=== PATIENT | female | born 1975 | race African-American/Black ===

== ENCOUNTER 2016-04-27 08:14 | Emergency (ER) | payer BC, MEDICAID ==
[~2016-04-27] VITALS: Ht 172.7 cm; Wt 100.0 kg
[~2016-04-27 08:14] MED LIST: AUGM875T PO; DIFL150T PO; FLUT1SPR9 EACH NARE
[2016-04-27 08:19] VITALS: BP 137/96; PULSE 78; RESP 16; TEMP 97.8; O2SAT 98
--- NOTE | 2016-04-27 08:38 | PD ---
HPI Chief Complaint: Injury Time Seen by Provider: 08:35 Travel History International Travel<30 days: No Contact w/Intl Traveler<30days: No Traveled to known affect area: No History of Present Illness HPI Patient comes in for evaluation puncture wound plantar surface of her foot that occurred yesterday morning. Patient states she was at a detention where there are having the roof redone when she accidentally stepped on a nail that went through her shoe. Patient has been cleaning it and using antibiotic ointment. Patient is uncertain of her last tetanus shot. Patient complaining of mild irritation around the site of the puncture wound that is slightly irritated when she walks. Denies any radiation of the pain. Patient denies anything making it better. PFSH Past Medical History Asthma: Yes Diminished Hearing: No Migraines: Yes ?: Not Past Surgical History Section: Yes Gynecologic Surgery: Yes (C.SECTION X 3) Social History Alcohol Use: No Tobacco Use: No Substance Use: No Allergies-Medications (Allergen,Severity, Reaction): Coded Allergies: Levaquin (Verified Allergy, Severe, EDEMA, 04/27/16) Reported Meds & Prescriptions Reported Meds & Active Scripts Active Keflex (Cephalexin) 500 Mg Cap 500 Mg PO Q6H 5 Days Review of Systems Except as stated in HPI: all other systems reviewed are Neg Physical Exam Narrative GENERAL: Well-developed, overly nourished, in no acute distress, and non-ill appearing. SKIN: Warm and dry. Small (less than 0.5 cm) circular puncture wound noted is relatively superficial, without fluctuation, induration, crepitus, or drainage. It is afebrile and minimally tender to palpation. There is no obvious retained foreign body noted. HEAD: Atraumatic. Normocephalic. EYES: Pupils equal and round. EOMI. No scleral icterus. No injection or drainage. ENT: No nasal bleeding or discharge. Mucous membranes pink and moist. NECK: Trachea midline. Supple. No nuclear rigidity. RESPIRATORY: No accessory muscle use. No respiratory distress. MUSCULOSKELETAL: No obvious deformities. No clubbing. No cyanosis. No edema. Full range of motion. NEUROLOGICAL: Awake and alert. No obvious cranial nerve deficits. Motor grossly within normal limits. Normal speech. PSYCHIATRIC: Appropriate mood and affect; insight and judgment normal. Data Data Last Documented VS Vital Signs Date Time Temp Pulse Resp B/P Pulse Ox O2 Delivery O2 Flow Rate FiO2 04/27/16 08:19 97.8 78 16 137/96 98 Room Air Orders Tetanus/Diphtheria Tox Adult (Tetanus/Di (04/27/16 08:45) MDM Medical Decision Making Medical Screen Exam Complete: Yes Emergency Medical Condition: No Differential Diagnosis Puncture wound, wound infection, abscess, cellulitis, other Narrative Course Patient in no obvious distress upon re-evaluation. Patient was asked if they wanted to speak to my attending, which the patient did not wish to do at this time. Secondary to patient's Levaquin allergy Cipro and/or Levaquin could not be given prophylactically, therefore Keflex as prescribed instead following the guidelines noted on up-to-date. Any questions/concerns in reference to patient diagnosis/condition discussed and clarified prior to patient's discharge. Reinforced sheer importance of close follow up with patient's primary physician or primary care clinic. Instructed patient to return to ED immediately, if symptoms return/worsen. Pt showed understanding of above instructions. Further instructions and recommendations were detailed in discharge paperwork. Pt ambulated without difficulty out of ED at discharge. Diagnosis Primary Impression: Puncture wound Patient Instructions: General Instructions, Puncture Wound (ED) Additional Instructions: Follow-up with your primary care physician in 3-5 days for reevaluation. Take all medication as prescribed. Use [id number] Tylenol and/or ibuprofen as needed for pain. Follow instructions on the packaging. Return to the emergency department if symptoms get worse. Med/Other Pt SpecificInfo: Prescription(s) given Scripts Cephalexin (Keflex)500 Mg [id number] Mg PO Q6H 5 Days Ref 0 Prov:Florencio Garcia MD 04/27/16 Disposition: 01 DISCHARGE HOME Condition: Stable Pro Manuel Apr 27, 2016 08:38
[2016-04-27] MEDS ORDERED: CEPH-460 PO (08:39)
[2016-04-27] MEDS ORDERED: TETANUS/DIPHTHERIA TOXOID ADULT 0.5 ML VIAL IM ONE (08:45)
== END 2016-04-27 08:58 | disposition home or self-care (01) ==
LOC: NEPB 08:14
DX: S91.331A Puncture wound without foreign body, right foot, initial encounter (principal); Z23 Encounter for immunization; W45.0XXA Nail entering through skin, initial encounter; Y92.129 Unspecified place in nursing home as the place of occurrence of the external cause
CPT/HCPCS: 90471; 90714

== ENCOUNTER 2016-06-19 15:23 | Emergency (ER) | payer BC ==
[~2016-06-19] VITALS: Ht 172.7 cm; Wt 90.5 kg
[~2016-06-19 15:23] MED LIST changes: -AUGM875T PO; +CEPH-460 PO; -DIFL150T PO; -FLUT1SPR9 EACH NARE
[2016-06-19 15:24] VITALS: BP 155/72; PULSE 108; RESP 22; TEMP 97.5; O2SAT 100
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
[2016-06-19] MEDS ORDERED: RESP: RACEPINEPHRINE 2.25% 0.5 ML NEB INH ONE (16:00)
[2016-06-19] MEDS ORDERED: DEXAMETHASONE SOD PHOS 4 MG/ML VIAL IVP ONE (16:00)
--- NOTE | 2016-06-19 16:27 | RADRPT ---
EXAM DATE/TIME: 06/19/2016 16:13 [facility] COMPARISON: CHEST PA & LAT, June 19, 2016, 16:11. INDICATIONS : Stridor. MEDICAL HISTORY : None. SURGICAL HISTORY : None. ENCOUNTER: Initial ACUITY: 1 day PAIN SCORE: 0/10 LOCATION: Throat. FINDINGS: Two view examination of the soft tissues of the neck demonstrates the hypopharyngeal airway to have a grossly normal configuration. The trachea is midline. No radiopaque foreign bodies are seen. CONCLUSION: 1. The epiglottis is normal in appearance. 2. No foreign body identified Jann Hendricks MD on June 19, 2016 at 16:25 Board Certified Radiologist. This report was verified electronically.
--- NOTE | 2016-06-19 16:27 | RADRPT ---
EXAM DATE/TIME: 06/19/2016 16:11 [facility] COMPARISON: No previous studies available for comparison. INDICATIONS : Short of breath. MEDICAL HISTORY : None. SURGICAL HISTORY : None. ENCOUNTER: Initial ACUITY: 1 day PAIN SCORE: 0/10 LOCATION: chest FINDINGS: PA and lateral views of the chest demonstrate the lungs to be symmetrically aerated without evidence of mass, infiltrate or effusion. The cardiomediastinal contours are unremarkable. Osseous structure s are intact. CONCLUSION: 1. No acute cardiopulmonary findings identified. Jann Hendricks MD on June 19, 2016 at 16:25 Board Certified Radiologist. This report was verified electronically.
[2016-06-19 16:41] VITALS: O2SAT 95
== END 2016-06-19 17:56 | disposition home or self-care (01) ==
LOC: NEPC 15:23
DX: J98.8 Other specified respiratory disorders (principal); R06.1 Stridor; R06.00 Dyspnea, unspecified; T59.891A Toxic effect of other specified gases, fumes and vapors, accidental (unintentional), initial encounter
CPT/HCPCS: 70360; 71020; 94664; 96374; 99283; J1100